=== PATIENT | male | born 2000 | race Asian ===

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

== ENCOUNTER 2021-08-25 02:37 | Emergency (ER) | payer OTHER ==
[~2021-08-25] VITALS: Ht 175.3 cm; Wt 72.6 kg
[2021-08-25 03:30] VITALS: BP 110/75; TEMP 99.2
== END 2021-08-25 05:00 | disposition home or self-care (01) ==
LOC: ED 02:37
DX: S93.491A Sprain of other ligament of right ankle, initial encounter (principal); W03.XXXA Other fall on same level due to collision with another person, initial encounter; Y93.67 Activity, basketball; Y92.89 Other specified places as the place of occurrence of the external cause
CPT/HCPCS: 96372; 99282; J1885

== ENCOUNTER 2022-06-16 11:26 | Emergency (ER) | payer OTHER ==
[~2022-06-16] VITALS: Ht 175.3 cm; Wt 68.0 kg
[2022-06-16 11:30] VITALS: BP 103/48; TEMP 97.6
== END 2022-06-16 13:17 | disposition home or self-care (01) ==
LOC: ED 11:26
PROC: 2W3QX1Z Immobilization of Right Lower Leg using Splint (ICD-10-PCS; principal; 2022-06-16)
DX: S93.491A Sprain of other ligament of right ankle, initial encounter (principal); W50.0XXA Accidental hit or strike by another person, initial encounter; Y93.67 Activity, basketball; Y92.89 Other specified places as the place of occurrence of the external cause
CPT/HCPCS: 96372; 99283; J1885